=== PATIENT | female | born 1960 | race Caucasian/White ===

== ENCOUNTER → 2017-07-23 | Day surgery (SDC) | payer OTHER ==
[~2017-07-23] MED LIST: ATIVAN; FENTANYL1 EAC6 TD; HYDROCODON-ACE1 EAC5 PO; LAMICTAL100 MG PO; LORTAB 10/500 T1 TAB; MELATONIN10 M2 PO; SENNA; STOOL SOFTENER250 MG PO; WELLBUTRIN SR150 MG PO; WELLBUTRIN XL; [UNRECOGNIZED DRUG - OTHER]
--- NOTE | ~2017-07-23 | OR ---
Unit #: [id number] #: [id number] Patient: YASHIRA ALVAREZ [id number] [address] [address] [id number] O MR#: [id number] NAME: YASHIRA ALVAREZ. ROOM: Date of Procedure: 07/23/2017 Admission Date: 07/23/2017 Surgeon: Shukri Green M.D. : 1960 Attending Physician: Shukri Green M.D. Primary Care Physician: Gracy Guillermo A.P.R.N. PROCEDURE OPERATIVE NOTE PREOP DIAGNOSIS Screening colonoscopy. POSTOP DIAGNOSIS Screening colonoscopy. PROCEDURE Colonoscopy to cecum. SURGEON Shukri Green M.D. ANESTHESIA Monitored anesthesia care. FINDINGS Patient had normal colonoscopy to cecum. SPECIMENS None. COMPLICATIONS None apparent. CONDITION Patient tolerated the procedure well. INDICATIONS Patient is a 56-year-old white female who presents at this time for screening colonoscopy. OPERATION After obtaining informed consent, the patient was brought to the endoscopy suite and, after adequate monitored anesthesia care, had the colonoscope placed through the anus and slowly advanced to the level of the cecum without difficulty with lumen always in view. The cecum was normal, as was the ileocecal valve. The ascending colon was normal, as was the hepatic flexure, transverse colon, splenic flexure, descending colon, sigmoid colon and rectum. On retroflexing in the rectum to the anorectal junction, the patient was found to have no significant abnormality. It should be noted the patient had moderate amount of greenish thick stool. We were able to irrigate the vast majority and visualize the majority of Unit #: [id number] #: [id number] Patient: YASHIRA ALVAREZ the colon. No obvious lesions were seen. The scope was removed without difficulty. Patient tolerated the procedure well, went from the endoscopy suite to the recovery room in stable condition. RECOMMENDATIONS 1. Recommendations are high-fiber diet; 2. Lots of liquids; 3. Tucks or wipes p.r.n.; 4. Followup as needed. Dictated by... Elizabeth Reddy/onel TD: 07/24/2017 12:42 JOB #: [id number] PROCEDURE OPERATIVE NOTE Page 1 of 1 X Shukri Green MD PROCEDURE OPERATIVE NOTE
== END | disposition home or self-care (01) ==
LOC: COPS 11:09
PROVIDERS: Surgery
PROC: 0DJD8ZZ Inspection of Lower Intestinal Tract, Via Natural or Artificial Opening Endoscopic (ICD-10-PCS; principal; 2017-07-23 13:00)
DX: Z12.11 Encounter for screening for malignant neoplasm of colon (principal); J44.9 Chronic obstructive pulmonary disease, unspecified; R12 Heartburn; F17.200 Nicotine dependence, unspecified, uncomplicated; D64.9 Anemia, unspecified; F32.9 Major depressive disorder, single episode, unspecified; F41.9 Anxiety disorder, unspecified; Z79.899 Other long term (current) drug therapy; Z79.891 Long term (current) use of opiate analgesic; Z87.442 Personal history of urinary calculi; Z82.49 Family history of ischemic heart disease and other diseases of the circulatory system; Z80.41 Family history of malignant neoplasm of ovary; Z84.89 Family history of other specified conditions; Z98.890 Other specified postprocedural states; Z90.710 Acquired absence of both cervix and uterus